=== PATIENT | male | born 1990 | race Two or more races ===

== ENCOUNTER 2023-10-19 08:18 | Emergency (ER) | payer OTHER ==
[~2023-10-19] VITALS: Ht 165.1 cm; Wt 72.6 kg
[2023-10-19 10:49] LABS: HEMATOCRIT 47.1 % (39.0-48.0); HEMOGLOBIN 16.1 g/dL (13-16.00); MEAN CELL VOLUME 84.6 fL (80.0-100.00); MEAN CORPUSCULAR HEMOGLOBIN 28.8 pg (27.00-32.0); MEAN CORPUSCULAR HGB CONC 34.1 g/dl (32.0-36.0); PLATELET COUNT 270 K/uL (150-450); RED BLOOD COUNT 5.57 M/uL (4.00-6.00)
== END 2023-10-19 11:50 | disposition home or self-care (01) ==
LOC: ER 08:19
DX: U07.1 COVID-19 (principal); J06.9 Acute upper respiratory infection, unspecified